=== PATIENT | female | born 1975 | race Caucasian/White ===

== ENCOUNTER 2016-10-03 16:50 | Emergency (ER) | payer MEDICAID, OTHER ==
[~2016-10-03] VITALS: Ht 177.8 cm; Wt 80.0 kg
[2016-10-03 17:11] VITALS: Ht 177.8 cm; Wt 80.0 kg
[2016-10-03] MEDS ORDERED: LIDOCAINE 1% (MDV) 20 ML INJ INJ STA (18:34)
[2016-10-03] MEDS ORDERED: DIPHTH/TET/ACEL PERTUSS (ADULT) 0.5 ML VIAL IM* ONE (19:00)
[2016-10-03] MEDS ORDERED: HYDROCODONE/APAP (5/325) TAB PO ONE (19:00)
[2016-10-03] MEDS ORDERED: SILVER SULFADIAZINE 1% 25 GM CR TOP ONE (19:30)
[2016-10-03] MEDS ORDERED: ACET1TAB40 PO (19:31)
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
[2016-10-03 19:44] VITALS: BP 137/94; PULSE 98; RESP 20; TEMP 98.6
== END 2016-10-03 19:45 | disposition home or self-care (01) ==
LOC: FTE 16:50
DX: S61.210A Laceration without foreign body of right index finger without damage to nail, initial encounter (principal); W22.8XXA Striking against or struck by other objects, initial encounter; Y92.9 Unspecified place or not applicable
CPT/HCPCS: 12002; 90471; 90715; Z7502; Z7610

== ENCOUNTER 2016-11-27 10:16 | Emergency (ER) | payer MEDICAID, OTHER ==
[~2016-11-27] VITALS: Ht 165.1 cm; Wt 83.5 kg
[~2016-11-27 10:16] MED LIST: ACET1TAB40 PO
[2016-11-27 10:21] VITALS: Ht 165.1 cm; Wt 83.5 kg
[2016-11-27 11:26] LABS: URINE BLOOD (Dip) POC Negative (NEGATIVE)
--- NOTE | 2016-11-27 12:37 | RADRPT ---
PROCEDURE: US venous lower extremities bilaterally. CLINICAL INDICATION: Bilateral lower extremity swelling and pain. TECHNIQUE: Multiple longitudinal and transverse images of the bilateral lower extremity veins were obtained with russell scale and color Doppler imaging. 2D grayscale imaging with compression, color D oppler flow, and augmentation was performed. The calf veins were interrogated as well. COMPARISON: None available. FINDINGS: The common femoral, superficial femoral, and popliteal veins are compressible bilaterally. There is normal color Doppler flow within the vessels. Normal waveforms are visualized and there is normal response to augmentation. The calf veins are visualized and are equally unremarkable. IMPRESSION: 1. No evidence of deep vein thrombosis in the lower extremities bilaterally. RPTAT: GG .Hernan Mendieta MD, MD Date Time Electronically viewed and signed by .Hernan Mendieta MD, MD on 11/27/2016 12:37 .P/
[2016-11-27] MEDS ORDERED: FURO20TA3 PO (13:10)
[2016-11-27] MEDS ORDERED: IBUP-1542 PO (13:15)
[2016-11-27 13:40] VITALS: BP 112/69; PULSE 79; RESP 16; TEMP 98
--- NOTE | 2016-11-27 16:05 | ERD ---
ER Documentation Chief Complaint Date/Time DATE: 11/27/16 TIME: 16:02 Chief Complaint Complains of fever and abdominal x 3 days HPI 41-year-old female complaining of bilateral feet swollen on that off 3 months. For the last week, the swelling has become consistent. She reports pain in bilateral feet. Able to ambulate. Patient reported 3 day episode of subjective fever and bilateral low back pain 3 days. Patient she had nausea but no vomiting at that time. The subjective fever has since resolved. Denies shortness of breath. Denies calf pain. Denies dysuria. Denies cough or runny nose. Denies abdominal pain, nausea, vomiting, diarrhea. Denies any injuries. Denies any medical history. ROS All systems reviewed and are negative except as per history of present illness. Medications Home Meds Active Scripts Ibuprofen* (Motrin*) 600 Mg Tab, 600 MG PO Q6H Y for PAIN AND OR ELEVATED TEMP, #30 TAB Prov:ELKE MOTA. [employer] REPA[employer]ER 11/27/16 Furosemide* (Furosemide*) 20 Mg Tablet, 20 MG PO DAILY, #10 TAB Prov:ELKE MOTA [employer] REPA[employer]ER 11/27/16 Acetaminophen with Codeine (Acetaminophen-Cod #3 Tablet) 1 Each Tablet, 1 TAB PO Q6H Y for PAIN, #12 TAB Prov:ALMA MCCLURE MD 10/03/16 Allergies Allergies: Coded Allergies: No Known Allergy (Unverified , 10/03/16) PMhx/Soc Medical and Surgical Hx: pt denies Medical Hx, pt denies Surgical Hx History of Surgery: No Anesthesia Reaction: No Hx Neurological Disorder: No Hx Respiratory Disorders: No Hx Cardiac Disorders: No Hx Psychiatric Problems: No Hx Miscellaneous Medical Probl: No Hx Alcohol Use: No Hx Substance Use: No Hx Tobacco Use: Yes Smoking Status: Current some day smoker Physical Exam Vitals Vital Signs Date Time Temp Pulse Resp B/P Pulse Ox O2 Delivery O2 Flow Rate FiO2 11/27/16 13:40 98.0 79 16 112/69 100 Room Air 11/27/16 10:21 98.3 86 20 130/75 98 Physical Exam General: Well-developed, well-nourished, conscious and coherent, in no distress Skin: Warm and dry without rash, good texture and turgor Head: Normocephalic without evidence of trauma Eyes: Sclera and conjunctivae normal; pupils equal, round, and reactive to light; extraocular movements are intact Neck: Supple without meningismus or adenopathy. Carotids are equal. Trachea midline. No bruits or JVD Chest: Normal AP diameter. Good expansion without retractions. Nontender. Lungs are clear to auscultate bilaterally with good tidal volume Heart: Regular rate and rhythm. No murmur, rub, or gallops heard Abdomen: Soft and nontender without masses, guarding, or rebound. Bowel sounds are active. No hepatosplenomegaly Back: Without spinal or CVA tenderness Pelvis: Nontender to palpation and stable to compression Extremities: Bilateral ankle and feet 1+ nonpitting edema. Full range of motion. Good strength bilaterally. No clubbing, cyanosis, or edema. Peripheral pulses are intact. Sensation intact Neuro: Alert and oriented 4, GCS 15. Cranial nerves grossly intact. Motor and sensory exams nonfocal. Moves all extremities. Speech clear. Gait normal Results 24 hrs Laboratory Tests Test 11/27/16 11:30 Bedside Urine pH (LAB) 8.5 Bedside Urine Protein (LAB) 1+ Bedside Urine Glucose (UA) Negative Bedside Urine Ketones (LAB) Negative Bedside Urine Blood Negative Bedside Urine Nitrite (LAB) Negative Bedside Urine Leukocyte Esterase (L Trace PROCEDURE: US venous lower extremities bilaterally. CLINICAL INDICATION: Bilateral lower extremity swelling and pain. TECHNIQUE: Multiple longitudinal and transverse images of the bilateral lower extremity veins were obtained with russell scale and color Doppler imaging. 2D grayscale imaging with compression, color Doppler flow, and augmentation was performed. The calf veins were interrogated as well. COMPARISON: None available. FINDINGS: The common femoral, superficial femoral, and popliteal veins are compressible bilaterally. There is normal color Doppler flow within the vessels. Normal waveforms are visualized and there is normal response to augmentation. The calf veins are visualized and are equally unremarkable. IMPRESSION: 1. No evidence of deep vein thrombosis in the lower extremities bilaterally. RPTAT: GG .Hernan Mendieta MD, MD Date Time Electronically viewed and signed by .Hernan Mendieta MD, MD on 11/27/2016 12:37 .P/ CC: ELKE MOTA [employer] REPAIRER Procedures/MDM Well-appearing 41-year-old female presented ED complaining of bilateral pedal edema. Doppler ultrasound of bilaterally lower extremity is negative for DVT. Urine dip is negative for UTI. Urine test also negative. Her lungs are clear to auscultate, she has no respiratory distress. I doubt CHF or pulmonary effusion. Likely her pedal edema is secondary to fluid retention or venous insufficiency. Patient appears well, stable for discharge and outpatient management. Medical decision making shared with patient and family. Education provided to patient and family. Patient and family expressed understanding of the plan. Patient given referral to [facility], and [facility] for follow-up. Medications on discharge: Ibuprofen, Lasix. Follow-up: Primary care provider in 2-3 days or return to ED if worse. Departure Diagnosis: Primary Impression: Pedal edema Condition: Stable Patient Instructions: Peripheral Edema, Bilateral Referrals: [facility] YOU HAVE RECEIVED A MEDICAL SCREENING EXAM AND THE RESULTS INDICATE THAT YOU DO NOT HAVE A CONDITION THAT REQUIRES URGENT TREATMENT IN THE EMERGENCY DEPARTMENT. FURTHER EVALUATION AND TREATMENT OF YOUR CONDITION CAN WAIT UNTIL YOU ARE SEEN IN YOUR DOCTORS OFFICE WITHIN THE NEXT 1-2 DAYS. IT IS YOUR RESPONSIBILITY TO MAKE AN APPOINTMENT FOR FOLOW-UP CARE. IF YOU HAVE A PRIMARY DOCTOR --you should call your primary doctor and schedule an appointment IF YOU DO NOT HAVE A PRIMARY DOCTOR YOU CAN CALL OUR PHYSICIAN REFERRAL HOTLINE AT IF YOU CAN NOT AFFORD TO SEE A PHYSICIAN YOU CAN CHOSE FROM THE FOLLOWING [facility] [address] [facility] [facility]. [facility] [address] [facility] [address] [facility] [facility] [address] [facility]. [facility] [address] [facility]. [facility]. [address] Additional Instructions: Call your primary care doctor TOMORROW for an appointment during the next 2-3 days.See the doctor sooner or return here if your condition worsens before your appointment time. ELKE MOTA. PRISCILLA Nov 27, 2016 16:05
== END 2016-11-27 13:43 | disposition home or self-care (01) ==
LOC: FTE 10:16
DX: R60.0 Localized edema (principal); F17.210 Nicotine dependence, cigarettes, uncomplicated
CPT/HCPCS: 81003; 93970

== ENCOUNTER 2018-09-13 12:59 | Emergency (ER) | payer MEDICAID ==
[~2018-09-13] VITALS: Ht 165.1 cm; Wt 80.4 kg
[~2018-09-13 12:59] MED LIST changes: +CEPH-443 PO; +FURO20TA3 PO; +IBUP-1542 PO
[2018-09-13 13:09] VITALS: BP 141/87; PULSE 102; RESP 18; Ht 165.1 cm; Wt 80.4 kg
[2018-09-13] MEDS ORDERED: NAPR-985 PO (14:58)
[2018-09-13] MEDS ORDERED: LIDOCAINE 1% (MPF) 5 ML VIAL INJ ONE (15:00)
[2018-09-13] MEDS ORDERED: DIPHTH/TET/ACEL PERTUSS (ADULT) 0.5 ML VIAL IM* ONE (15:00)
--- NOTE | 2018-09-13 15:14 | ERD ---
ER Documentation Chief Complaint Chief Complaint chin lac with glass bottle today HPI 42-year-old female presenting with a laceration to her chin. Patient cut herself with a glass bottle. She denies any loss of consciousness. Does not recall her last tetanus shot. Denies medical problems. NKDA. Surgical history denies. Social history smokes 1 to 2 cigarettes a day. Denies drug use ROS All systems reviewed and are negative except as per history of present illness. Medications Home Meds Active Scripts Naproxen* (Naprosyn*) 500 Mg Tablet, 500 MG PO BID PRN for PAIN AND/OR INFLAMMATION, #30 TAB Prov:RORY MINER PA-C 09/13/18 Cephalexin* (Keflex*) 500 Mg Capsule, 500 MG PO QID for 5 Days, CAP Prov:ALMA MCCLURE MD 05/22/17 Ibuprofen* (Motrin*) 600 Mg Tab, 600 MG PO Q6H PRN for PAIN AND OR ELEVATED TEMP, #30 TAB Prov:ELKE MOTA NP 11/27/16 Furosemide* (Furosemide*) 20 Mg Tablet, 20 MG PO DAILY, #10 TAB Prov:ELKE MOTA NP 11/27/16 Acetaminophen with Codeine (Acetaminophen-Cod #3 Tablet) 1 Each Tablet, 1 TAB PO Q6H PRN for PAIN, #12 TAB Prov:ALMA MCCLURE MD 10/03/16 Allergies Allergies: Coded Allergies: No Known Allergy (Unverified , 10/03/16) PMhx/Soc History of Surgery: No Anesthesia Reaction: No Hx Neurological Disorder: No Hx Respiratory Disorders: No Hx Cardiac Disorders: No Hx Psychiatric Problems: Yes (Reports depression and anxiety) Hx Miscellaneous Medical Probl: No Hx Alcohol Use: No Hx Substance Use: No Hx Tobacco Use: Yes Smoking Status: Current every day smoker FmHx Family History: No diabetes, No coronary disease, No other Physical Exam Vitals Vital Signs Date Temp Pulse Resp B/P (MAP) Pulse Ox O2 O2 Flow FiO2 Time Delivery Rate 09/13/18 98.2 102 18 141/87 96 13:09 (105) Physical Exam GENERAL: The patient is well-appearing, well-nourished, in no acute distress HEENT: Atraumatic. Conjunctivae are pink. Pupils equal, round, and reactive to light. There is no scleral icterus. Tympanic membranes clear bilaterally. Oropharynx clear. CHEST: Clear to auscultation bilaterally. There are no rales, wheezes or rhon chi. HEART: Regular rate and rhythm. No murmurs, clicks, rubs or gallops. NEUROLOGIC: Alert and oriented. Cranial nerves II through XII intact. Motor strength in all 4 extremities with 5 out of 5 strength. Sensation grossly intact. Normal speech and gait. SKIN: 2 cm linear laceration vertically positioned of the medial chin. Mild active bleeding. Results 24 hrs Current Medications Medications Dose Sig/Javier Start Time Status Last (Trade) Ordered Route PRN Stop Time Admin Dose Reason Admin Diphtheria/ 0.5 ml ONCE ONCE 09/13/18 DC 09/13/18 Tetanus/Acell IM* 15:00 14:40 Pertussis 09/13/18 15:01 (Adacel) Lidocaine 5 ml ONCE ONCE 09/13/18 DC (Xylocaine INJ 15:00 1% (Mpf)) 09/13/18 15:01 Procedures/MDM Laceration Repair by me: Anesthesia: 1% lidocaine locally Location: chin Tendon/Joint/Nerves: No injury Foreign body: None detected after copious irrigation and exploration Technique: Simple Interrupted Sutures Complexity: No subcutaneous sutures/mucosal repair/edge excision Post Closure Length: 2 cm Patient's bleeding was easily controlled in the department and there is no indication of anemia. No evidence of compartment syndrome, neurologic injury, vascular injury, open joint, tendon laceration, or foreign body. Patient is appropriate for outpatient follow up. 48 hour wound check. Scar minimization instructions given. MDM: 42-year-old female presenting with laceration to chin. I have low suspicion for tendon or ligament rupture. Patient had sutures placed without complication. Patient had tetanus shot in the ED. Patient is discharged with strict ER precautions and recommended to return for suture removal in 7 days. All questions answered at discharge Departure Diagnosis: Primary Impression: Laceration Condition: Stable Patient Instructions: Laceration, Face (Suture Or Tape) Referrals: [facility] YOU HAVE RECEIVED A MEDICAL SCREENING EXAM AND THE RESULTS INDICATE THAT YOU DO NOT HAVE A CONDITION THAT REQUIRES URGENT TREATMENT IN THE EMERGENCY DEPARTMENT. FURTHER EVALUATION AND TREATMENT OF YOUR CONDITION CAN WAIT UNTIL YOU ARE SEEN IN YOUR DOCTORS OFFICE WITHIN THE NEXT 1-2 DAYS. IT IS YOUR RESPONSIBILITY TO MAKE AN APPOINTMENT FOR FOLOW-UP CARE. IF YOU HAVE A PRIMARY DOCTOR --you should call your primary doctor and schedule an appointment IF YOU DO NOT HAVE A PRIMARY DOCTOR YOU CAN CALL OUR PHYSICIAN REFERRAL HOTLINE AT IF YOU CAN NOT AFFORD TO SEE A PHYSICIAN YOU CAN CHOSE FROM THE FOLLOWING [facility] [address] [facility] [address] [facility] [address] [facility] [address] [facility]. [facility] [address] [facility]. [facility]. [address] Additional Instructions: FOLLOW UP WITH YOUR PRIMARY CARE PHYSICIAN TOMORROW.Return to this facility if you are not improving as expected. RORY MINER PA-C Sep 13, 2018 15:14
== END 2018-09-13 15:13 | disposition home or self-care (01) ==
LOC: FTE 12:59
DX: S01.81XA Laceration without foreign body of other part of head, initial encounter (principal); F17.210 Nicotine dependence, cigarettes, uncomplicated; W25.XXXA Contact with sharp glass, initial encounter; Y92.9 Unspecified place or not applicable; Z23 Encounter for immunization
CPT/HCPCS: 12011; 90471; 90715; Z7502; Z7610